=== PATIENT | female | born 1955 | race Caucasian/White ===

== ENCOUNTER 2023-05-17 11:21 | Emergency (ER) | payer MEDICARE, OTHER ==
[~2023-05-17] VITALS: Ht 160 cm; Wt 63.5 kg
[2023-05-17] MEDS ORDERED: BP pill (11:36)
[2023-05-17] MEDS ORDERED: [UNRECOGNIZED DRUG - REMARK] (11:36)
[2023-05-17 11:57] LABS: EOSINOPHILS # (AUTO) 0.2 K/uL (0.0-0.7); HEMATOCRIT 25.4 % (31.2-41.9); HEMOGLOBIN 8.2 g/dL (10.9-14.3); LYMPHOCYTES # (AUTO) 0.4 K/uL (0.8-4.8); LYMPHOCYTES % (AUTO) 28.3 % (20.5-51.5); MEAN CORPUSCULAR HEMOGLOBIN 28.7 uug (24.7-32.8); MEAN CORPUSCULAR HGB CONC 33 g/dL (32.3-35.6); MEAN CORPUSCULAR VOLUME 88.3 fL (75.5-95.3); MONOCYTES # (AUTO) 0.1 K/uL (0.1-1.30); MONOCYTES % (AUTO) 5.3 % (0.0-11.0); NEUTROPHILS # (AUTO) 0.7 K/uL (1.8-8.9); NEUTROPHILS % (AUTO) 52.4 % (38.5-71.5); RED BLOOD CELL COUNT(AUTO) 2.87 MIL/uL (3.63-4.92); RED CELL DISTRIBUTION WIDTH 19.5 % (12.3-17.7)
[2023-05-17 12:07] LABS: CALCIUM 8.4 mg/dL (8.5-10.1); CREATININE 0.7 mg/dL (0.6-1.3); POTASSIUM 3.9 mmol/L (3.5-5.1)
[2023-05-17 12:09] LABS: DIFFERENTIAL COMMENT 1; PLATELET COUNT (AUTO) 45 K/uL (179-408); WHITE BLOOD COUNT (AUTO) 1.3 K/uL (3.8-11.8)
[2023-05-17 12:13] LABS: ALBUMIN 3.3 g/dL (3.4-5.0); BILIRUBIN,DIRECT 0.3 mg/dL (0.0-0.2); BILIRUBIN,TOTAL 1.1 mg/dL (0.2-1.0); TOTAL PROTEIN, SERUM 7.6 g/dL (6.4-8.2)
[2023-05-17 13:38] LABS: ANISOCYTOSIS 2+; EOSINOPHILS % (MANUAL) 20 % (0-8); LYMPHOCYTES % (MANUAL) 18 % (20-40); MONOCYTES % (MANUAL) 6 % (2-10); NEUTROPHILS % (MANUAL) 56 % (42-75); PLATELET ESTIMATE DECREASED
[2023-05-17 14:57] VITALS: BP 149/82; O2SAT 99
== END 2023-05-17 14:58 | disposition home or self-care (01) ==
LOC: ER 11:21
DX: R10.33 Periumbilical pain (principal); Z86.2 Personal history of diseases of the blood and blood-forming organs and certain disorders involving the immune mechanism
CPT/HCPCS: 36415; 70030-TC; 83690; 85025; A4663

== ENCOUNTER 2023-07-05 21:43 | Emergency (ER) | payer MEDICARE, OTHER ==
[~2023-07-05] VITALS: Ht 160 cm; Wt 63.5 kg
[~2023-07-05 21:43] MED LIST: BP pill; [UNRECOGNIZED DRUG - REMARK]
[2023-07-05] MEDS ORDERED: IV NORMAL SALINE 1000 ML BAG IV ONE (22:15)
[2023-07-05] MEDS ORDERED: PHYTONADIONE 10 MG/1 ML AMPUL SQ ONE (22:15)
[2023-07-05] MEDS ORDERED: PROCHLORPERAZINE EDISYLATE 10 MG/2 ML VIAL IV ONE (22:15)
[2023-07-05] MEDS ORDERED: OCTREOTIDE ACETATE 50 MCG/1 ML ML IV ONE (22:15)
[2023-07-05] MEDS ORDERED: PANTOPRAZOLE SODIUM 40 MG VIAL IV ONE (22:15)
[2023-07-05] MEDS ORDERED: PHYTONADIONE 10 MG/1 ML AMPUL ONE (22:20)
[2023-07-05] MEDS ORDERED: PANTOPRAZOLE SODIUM 40 MG VIAL ONE (22:20)
[2023-07-05] MEDS ORDERED: OCTREOTIDE ACETATE 50 MCG/1 ML ML ONE (22:22)
[2023-07-05 22:30] LABS: EOSINOPHILS # (AUTO) 0.2 K/uL (0.0-0.7); LYMPHOCYTES # (AUTO) 0.6 K/uL (0.8-4.8); MONOCYTES # (AUTO) 0.1 K/uL (0.1-1.30)
[2023-07-05] MEDS ORDERED: PROCHLORPERAZINE EDISYLATE 10 MG/2 ML VIAL ONE (22:37)
[2023-07-05 22:53] LABS: BASOPHILS % (AUTO) 1.4 % (0.0-2.0); EOSINOPHILS % (AUTO) 5.3 % (0.0-7.0); HEMATOCRIT 22.1 % (31.2-41.9); LYMPHOCYTES % (AUTO) 20.1 % (20.5-51.5); MEAN CORPUSCULAR HEMOGLOBIN 29.7 uug (24.7-32.8); MEAN CORPUSCULAR HGB CONC 34 g/dL (32.3-35.6); MEAN CORPUSCULAR VOLUME 88.2 fL (75.5-95.3); MONOCYTES % (AUTO) 4.5 % (0.0-11.0); NEUTROPHILS # (AUTO) 2.1 K/uL (1.8-8.9); NEUTROPHILS % (AUTO) 68.7 % (38.5-71.5); PLATELET COUNT (AUTO) 54 K/uL (179-408); RED CELL DISTRIBUTION WIDTH 18.2 % (12.3-17.7)
[2023-07-05 22:54] LABS: HEMOGLOBIN 7.4 g/dL (10.9-14.3)
[2023-07-05 22:55] LABS: DIFFERENTIAL COMMENT 1
[2023-07-05 23:13] LABS: CALCIUM 8.1 mg/dL (8.5-10.1); CARBON DIOXIDE 28 mmol/L (21-32); CHLORIDE 105 mmol/L (98-107); CREATININE 0.9 mg/dL (0.6-1.3); GLUCOSE 152 mg/dL (74-106); POTASSIUM 3.6 mmol/L (3.5-5.1); SODIUM SERUM 141 mmol/L (136-145); UREA NITROGEN, BLOOD 25 mg/dL (7-18)
[2023-07-05] MEDS ORDERED: PROC-11 PO (23:23)
[2023-07-05] MEDS ORDERED: PANT40TA2 PO (23:23)
[2023-07-05 23:25] LABS: ALANINE AMINOTRANSFERASE 19 U/L (14-59); ALBUMIN 2.9 g/dL (3.4-5.0); ALKALINE PHOSPHATASE 38 U/L (50-136); ASPARTATE AMINOTRANSFERASE 26 U/L (15-37); BILIRUBIN,DIRECT 0.3 mg/dL (0.0-0.2); BILIRUBIN,TOTAL 1.3 mg/dL (0.2-1.0); EOSINOPHILS % (MANUAL) 2 % (0-8); LYMPHOCYTES % (MANUAL) 16 % (20-40); MONOCYTES % (MANUAL) 3 % (2-10); NEUTROPHILS % (MANUAL) 79 % (42-75); TOTAL PROTEIN, SERUM 6.6 g/dL (6.4-8.2)
[2023-07-05 23:26] LABS: ANISOCYTOSIS 2+; PLATELET ESTIMATE DECREASED
[2023-07-05 23:41] VITALS: BP 125/62; O2SAT 100
== END 2023-07-05 23:45 | disposition left against medical advice (07) ==
LOC: ER 21:52
DX: K92.2 Gastrointestinal hemorrhage, unspecified (principal); K74.60 Unspecified cirrhosis of liver; D61.818 Other pancytopenia; R07.89 Other chest pain; Z79.899 Other long term (current) drug therapy
CPT/HCPCS: 99285; 86870; 96374; 71045; 96375; 96361; 80076; 80048; 82140; 85025; 85730; 86850; 86900; 86901; 84484; 36415; 93005; 96372; 83605; 85007; J2354; C9113; J3430; J0780; J7040; 70030-TC; A4663